=== PATIENT | male | born 2005 ===

== ENCOUNTER 2024-10-11 16:06 | Emergency (ER) | payer SELFPAY ==
[2024-10-11] MEDS: Lidocaine 1% with EPINEPHrine 1:100,000 20 ML MDV INJECT ONE (17:30)
== END 2024-10-11 17:34 | disposition home or self-care (01) ==
LOC: DL.ED 16:06
DX: S91.011A Laceration without foreign body, right ankle, initial encounter (principal); W25.XXXA Contact with sharp glass, initial encounter
CPT/HCPCS: 12001; 99282; J2004